=== PATIENT | male | born 1975 | race Caucasian/White ===

== ENCOUNTER → 2025-04-12 09:09 | Outpatient (REF) | payer BC, SELFPAY | LOC: HWRAD 09:09 | PROVIDERS: ATTENDING PHYSICIAN Chiropractor | DX: M54.2 Cervicalgia (principal); M53.2X7 Spinal instabilities, lumbosacral region | CPT/HCPCS: 72050; 72110 ==

== ENCOUNTER → 2025-05-16 10:50 | Outpatient (REF) | payer BC, SELFPAY | LOC: RAD 10:50 | PROVIDERS: ATTENDING PHYSICIAN Internal Medicine | DX: R06.09 Other forms of dyspnea (principal) | CPT/HCPCS: 71046 ==